=== PATIENT | male | born 1990 | race African-American/Black ===

== ENCOUNTER 2020-07-09 16:36 | Emergency (ER) | payer OTHER ==
[~2020-07-09] VITALS: Ht 190.5 cm; Wt 127.0 kg
[2020-07-09 16:46] VITALS: BP 126/78
[2020-07-09 18:24] LABS: Basophils # (auto) 0 10 ^3/uL (0-0.2); Basophils % (auto) 0.7 % (0.0-2.0); Eosinophils # (auto) 0 10 ^3/uL (0-0.8); Eosinophils % (auto) 0.6 % (0.0-7.0); Hematocrit 44.3 % (41.0-53.0); Hemoglobin 15.1 g/dL (13.5-17.5); Lymphocytes # (auto) 3.2 10 ^3/uL (0.4-5.4); Lymphocytes % (auto) 46.4 % (10.0-50.0); Mean Corpuscular Hemoglobin 30.9 pg (28.0-32.0); Mean Corpuscular Volume 90.9 fL (80.0-100.0); Monocytes # (auto) 0.5 10 ^3/uL (0-1.3); Monocytes % (auto) 7.7 % (0.0-12.0); Neutrophils % (auto) 44.6 % (37.0-80.0); Nucleated Red Blood Cells % 0.2 %; Platelet Count (auto) 238 10^3/uL (140-450); Red Blood Cells 4.87 10^6/uL (4.5-5.90); Red Cell Distribution Width 13.1 % (11.8-14.3); White Blood Cell 6.8 10^3/uL (4.4-10.8)
[2020-07-09 18:26] LABS: Albumin 3.9 g/dL (3.4-5.0); Anion Gap 7 (5-15); BUN/Creatinine Ratio 6.5; Blood Urea Nitrogen 6 mg/dL (7-18); Calcium 8.5 mg/dL (8.5-10.1); Carbon Dioxide 26 mmol/L (21-32); Chloride 104 mmol/L (98-107); GFR African American 122 mL/min; GFR Non-African American 101 mL/min; Glucose 103 mg/dL (74-106); Magnesium 2.1 mg/dL (1.6-2.6); Potassium 3.8 mmol/L (3.5-5.1); Sodium 137 mmol/L (136-145)
[2020-07-09 18:31] LABS: Alanine Aminotransferase 25 U/L (16-61); Alkaline Phosphatase 78 U/L (45-117); Aspartate Aminotransferase 16 U/L (15-37); Bilirubin, Total 0.2 mg/dL (0.2-1.0); Total Protein 7.8 g/dL (6.4-8.2)
[2020-07-09] MEDS ORDERED: IOHEXOL 350 MG/ML 100ML IJ ONE (21:43)
== END 2020-07-09 21:54 | disposition left against medical advice (07) ==
LOC: ER 16:36 → EDBD 16:36 → ER 21:54
DX: R07.89 Other chest pain (principal); R06.02 Shortness of breath
CPT/HCPCS: 36415; 71045; 80053; 83735; 84484; 85025; 93005